=== PATIENT | female | born 1995 | race Caucasian/White ===

== ENCOUNTER → 2020-11-13 | Outpatient (CLI) | payer MEDICAID ==
[2020-11-13 11:57] LABS: Basophils % (A) 0 %; Eosinophils # (A) 0.1 k/uL (0-0.7); Eosinophils % (A) 0 %; HCT 37.5 % (34.0-46.0); HGB 12.3 gm/dL (11.4-16.0); Lymphocytes # (A) 1.7 k/uL (1.0-4.8); Lymphocytes % (A) 15 %; MCH 27.7 pg (25.0-35.0); MCHC 32.7 g/dL (31.0-37.0); MCV 84.9 fL (80.0-100.0); Mean Platelet Volume 8.4; Monocytes # (A) 0.3 k/uL (0-1.0); Monocytes % (A) 2 %; Neutrophils # (A) 9.3 k/uL (1.3-7.7); Neutrophils % (A) 81 %; Platelet Count 171 k/uL (150-450); RBC 4.42 m/uL (3.80-5.40); RDW 14.3 % (11.5-15.5); WBC 11.5 k/uL (3.8-10.6)
[2020-11-13 21:17] LABS: Hepatitis B Surface Antigen Non-Reactive (Non-Reactive)
[2020-11-13 23:41] LABS: HIV 2 AB Non-Reactive (Non-Reactive); HIV AB P24 Non-Reactive (Non-Reactive); HIV P24 AG Non-Reactive (Non-Reactive)
== END | disposition home or self-care (01) ==
LOC: LABWHC1 10:24
PROVIDERS: ATTEND Obstetrics & Gynecology
DX: Z34.02 Encounter for supervision of normal first pregnancy, second trimester (principal)
CPT/HCPCS: 36415; 82950; 83036; 85025; 86762; 86780; 86850; 86900; 86901; 87340; 87390

== ENCOUNTER 2021-04-03 14:58 | Inpatient (IN) | payer OTHER, MEDICAID ==
[~2021-04-03 14:58] MED LIST: BUPIVACAINE (PF) 0.25% 30 ML VIAL ONE; SODIUM CHLORIDE 0.9% 100 ML BAG ONE; fentaNYL (PF) 50 MCG/ML 5 ML AMP ONE
[2021-04-03] MEDS ORDERED: miSOPROStoL 25 MCG TAB VAGINAL PRN (15:24)
--- NOTE | 2021-04-03 15:42 | P.HPOB ---
History of Present Illness H&P Date: 04/03/21 Chief Complaint: Postdates This is a 25-year-old white female 1 para 0 EDC 03/29/2021 at 40-5/7 weeks' gestation. Patient presents this afternoon for Cytotec ripening of the cervix. Fetus is been active throughout the . She denies vaginal bleeding or fluid leakage. MALKA yesterday in the office was within normal limits, reactive NST noted. Past medical history is essentially negative, morbid obesity noted. Past surgical history is negative. Current medications vitamins daily. ALLERGIES codeine to which reports a family history only. Family history significant for a stillbirth. Reproductive history is negative. Social history patient has never been a smoker, she denies alcohol or drug use. She is , her 's name is back. history is significant for blood type O+, rubella status immune. VDRL testing, gonorrhea and chlamydia cultures, Pap smear, rubella status, hepatitis B surface antigen, HIV testing all negative. One-hour Glucola 162, 3 hour GTT within normal limits. On exam patient is 5 foot 8 inches, 296 pounds, blood pressure 141/72, pulse 116 on admission. The general physical exam is within normal limits. heart rate is consistent with reactive NST. Cervix is fingertip, posterior, 60% effaced, -3 station, moderate consistency. Cytotec is to be placed in the vagina when available, 25 MCG's. Impression: 40-5/7 weeks intrauterine , unfavorable cervix, morbid mate rnal obesity, here for Cytotec induction. All signs reassuring. Plan: Cytotec 25 MCG's per vagina every 3-4 hours. Rest through the night. Stadol and/or epidural if labor should ensue. Anticipate vaginal delivery tomorrow morning. Review of Systems Constitutional: Reports as per HPI Past Medical History Past Medical History: No Reported History History of Any Multi-Drug Resistant Organisms: None Reported Past Surgical History: No Surgical Hx Reported Past Psychological History: No Psychological Hx Reported Past Alcohol Use History: None Reported Past Drug Use History: None Reported Medications and Allergies Home Medications Medication Instructions Recorded Confirmed Type Aspirin [Children's Aspirin] 81 mg PO 04/03/21 History Labetalol [Trandate] 200 mg PO BID 04/03/21 04/03/21 History Pnv No.95/Ferrous Fum/Folic AC 04/03/21 04/03/21 History [ Multivitamin Tablet] Allergies Allergy/AdvReac Type Severity Reaction Status Date / Time codeine Allergy Unknown Verified 04/03/21 15:21 Childhood Exam Intake and Output 04/03/21 04/03/21 04/03/21 06:59 14:59 22:59 Other: Weight 134.263 kg See dictation under HPI placed Assessment and Plan Assessment: 40-5/7 weeks intrauterine , unfavorable cervix, morbid maternal obesity, all signs otherwise reassuring. Plan: Cytotec intravaginally per protocol. Close maternal and surveillance. Anticipate amniorrhexis and oxytocin augmentation in the morning. All risks and benefits of this plan reviewed with the patient in detail. Time with Patient: Less than 30
[2021-04-03] MEDS: miSOPROStoL 100 MCG TAB VAGINAL PRN ×2 (15:47→19:05)
[2021-04-03] MEDS ORDERED: LACTATED RINGERS 1,000 ML IV SCH (16:00)
[2021-04-03 16:01] LABS: Anisocytosis Slight; Basophils % (A) 0 %; Eosinophils # (A) 0.1 k/uL (0-0.7); Eosinophils % (A) 0 %; HCT 34.7 % (34.0-46.0); HGB 12.3 gm/dL (11.4-16.0); Lymphocytes # (A) 1.8 k/uL (1.0-4.8); Lymphocytes % (A) 15 %; MCH 27.8 pg (25.0-35.0); MCHC 35.3 g/dL (31.0-37.0); MCV 78.6 fL (80.0-100.0); Mean Platelet Volume 8.9; Microcytosis Slight; Monocytes # (A) 0.6 k/uL (0-1.0); Monocytes % (A) 5 %; Neutrophils # (A) 9.1 k/uL (1.3-7.7); Neutrophils % (A) 78 %; Platelet Count 180 k/uL (150-450); RBC 4.42 m/uL (3.80-5.40); WBC 11.6 k/uL (3.8-10.6)
[2021-04-03] MEDS: LACTATED RINGERS 1,000 ML IV SCH (16:20)
[2021-04-03] MEDS ORDERED: BUTORPHANOL 1 MG/ML 1 ML VIAL IV PRN (19:02)
[2021-04-04] MEDS ORDERED: TERBUTALINE 1 MG/ML VIAL SQ PRN (05:13)
[2021-04-04] MEDS ORDERED: METHYLERGONOVINE 0.2 MG/ML 1 ML AMP IM PRN (05:13)
[2021-04-04] MEDS ORDERED: LIDOCAINE 0.5% (PF) 5 MG/ML (50 ML SDV) SQ PRN (05:13)
[2021-04-04] MEDS ORDERED: CARBOPROST TROMETHAMINE 250 MCG/ML 1 ML AMP IM PRN (05:13)
[2021-04-04] MEDS ORDERED: OXYTOCIN 10 UNIT/ML 1 ML VIAL IM PRN (05:13)
[2021-04-04] MEDS ORDERED: PENICILLIN G POTASSIUM 5,000,000 UNIT in DEXTROSE 5% IN WATER 100 ML IVPB ONE ×2 (05:30)
[2021-04-04] MEDS: LACTATED RINGERS 1,000 ML IV SCH ×2 (05:45→14:00)
[2021-04-04] MEDS: OXYTOCIN 30 UNITS/500 ML NS 30 UNIT in SALINE 1 500ML.BAG IV SCH ×2 (05:49→21:16)
[2021-04-04] MEDS ORDERED: LABETALOL 200 MG TAB PO STA (07:36)
[2021-04-04] MEDS: PENICILLIN G POTASSIUM 2,500,000 UNIT in DEXTROSE 5% IN WATER 100 ML IVPB SCH ×6 (10:07→19:20)
[2021-04-04] MEDS ORDERED: ACETAMINOPHEN IV (For NPO) 1,000 MG in EMPTY BAG 1 BAG IVPB STA (18:12)
[2021-04-04] MEDS ORDERED: LANOLIN CREAM 5 GM TUBE TOPICAL PRN (21:10)
[2021-04-04] MEDS ORDERED: ZOLPIDEM 5 MG TAB PO PRN (21:10)
[2021-04-04] MEDS ORDERED: HYDROCORTISONE 2.5% RECTAL CREAM 30 GM TUBE RECTAL PRN (21:10)
[2021-04-04] MEDS ORDERED: diphenhydrAMINE 25 MG CAP PO PRN (21:10)
[2021-04-04] MEDS ORDERED: diphenhydrAMINE 50 MG/ML 1 ML VIAL IVP PRN ×2 (21:10)
[2021-04-04] MEDS ORDERED: BENZOCAINE/MENTHOL SPRAY 1 GM/SPRAY AEROSOL TOPICAL PRN (21:10)
[2021-04-04] MEDS ORDERED: diphenhydrAMINE 50 MG CAP PO PRN (21:10)
[2021-04-04] MEDS ORDERED: ACETAMINOPHEN TAB 325 MG TAB PO PRN (21:10)
[2021-04-04] MEDS ORDERED: SIMETHICONE 80 MG CHEWABLE PO PRN (21:10)
--- NOTE | 2021-04-04 21:10 | P.PROBDLV ---
Vaginal Delivery Note - . Vaginal Delivery Note: This is a 25-year-old white female 1 para 0 EDC 03/29/2021 at 40-6/7 weeks' gestation. Patient presented last night for Cytotec induction for postdates and unfavorable cervix. She did receive Cytotec 25 MCG's 2. She slept through the night. This morning oxytocin augmentation was started. Group B strep cultures are positive, she did receive penicillin G 4 doses. Blood type is O+ rubella status immune. Please see my dictated history and physical for details. This morning artificial amniorrhexis revealed clear fluid. Oxytocin was started and titrated per hospital protocol. She became completely dilated at 2025 hours and began the second stage of labor at that time. With excellent maternal expulsive efforts very rapid station was noted. The perineal body was prepped and draped in usual sterile fashion. Infant's head delivered occiput anterior and he restituted accordingly. There was a nuchal cord 1 that was reduced on the perineum. The left or anterior shoulder was delivered easily from underneath the pubic symphysis at which time the oropharynx, nasopharynx, and external nares were all bulb suctioned. Patient was officially delivered of a liveborn male infant at 2042 hours. Umbilical cord was doubly clamped and ligated, he was handed to waiting nurses for evaluation where scores of 8 and 9 at one and 5 minutes respectively were given. The placenta was then delivered spontaneously, it was inspected and noted to be fully intact with trivascular cord. Please note that cord blood was sent to the lab for blood type O+. Infant weight 8 lbs. 6 oz. or 37 95 g. Careful inspection of the cervix, vagina, perineum, periurethral, and perirectal areas revealed a small first-degree midline perineal laceration. This was repaired in the usual fashion using 3-0 repeat suture. Total estimated blood loss 250 mL's. All sponge needle and instrument counts are correct. Patient is requesting circumcision for her son.
[2021-04-04] MEDS: IBUPROFEN 600 MG TAB PO SCH (23:00)
[2021-04-05] MEDS: LACTATED RINGERS 1,000 ML IV SCH (00:16)
[2021-04-05] MEDS: PENICILLIN G POTASSIUM 2,500,000 UNIT in DEXTROSE 5% IN WATER 100 ML IVPB SCH ×2 (00:17)
[2021-04-05] MEDS: IBUPROFEN 600 MG TAB PO SCH ×3 (05:42→20:32)
[2021-04-05 06:02] LABS: Anisocytosis Slight; Basophils % (A) 0 %; Eosinophils % (A) 0 %; HGB 12.4 gm/dL (11.4-16.0); Lymphocytes # (A) 2.7 k/uL (1.0-4.8); Lymphocytes % (A) 12 %; MCH 26.6 pg (25.0-35.0); MCHC 33.5 g/dL (31.0-37.0); MCV 79.5 fL (80.0-100.0); Mean Platelet Volume 8.7; Monocytes # (A) 1.1 k/uL (0-1.0); Monocytes % (A) 5 %; Neutrophils # (A) 18.9 k/uL (1.3-7.7); Neutrophils % (A) 81 %; Platelet Count 211 k/uL (150-450); RBC 4.66 m/uL (3.80-5.40); WBC 23.2 k/uL (3.8-10.6)
[2021-04-05] MEDS: SENNOSIDES-DOCUSATE SODIUM 1 EACH TAB PO SCH ×2 (07:59→20:32)
--- NOTE | 2021-04-05 08:23 | P.DS ---
Providers Date of admission: 04/03/21 14:58 Expected date of discharge: 04/05/21 Attending physician: Kristal Pleitez Primary care physician: Stated None Hospital Course: This is a 25-year-old female 1 para 0 EDC 03/29/2021 who presented at 40-6/7 weeks' gestation for Cytotec induction for unfavorable cervix and post dates . is essentially unremarkable, group B strep cultures positive, rubella status immune, blood type O+. Please see dictated history and physical for details. Patient was admitted, Cytotec was given 2 intravaginally. The following morning artificial amniorrhexis revealed clear fluid and oxytocin was started. Patient went on to receive 4 doses of penicillin G. Ultimately she delivered vaginally a liveborn male infant with scores of 8 and 9 at one and 5 minutes respectively. There was a nuchal cord 1, a small first-degree perineal laceration easily repaired, estimated blood loss 250 mL's. Infant weighed 3795 g or 8 lbs. 6 oz. Please see dictated delivery note for details. This morning the patient is doing well. She is voiding, ambulating, passing flatus without difficulty. Vital signs are stable and she is afebrile. Fundus is firm and in the midline, symmetric and 18 week size. Extremities reveal trace edema. [place] infant is doing well, circumcision has been performed. Patient is judged to be in very good condition for discharge home. She will follow-up with me in the office in 6 weeks. We've briefly reviewed options for contraception. No intercourse tampons or douching. Tjoy-fva-otcttoa Advil or Aleve, or Motrin as needed for pain. Call with any fevers shakes or chills, foul smelling or copious lochia, with any pain not alleviated by [id number] products, with any unusual headache visual changes or right upper quadrant pain, or indeed with any concerns. Assessment: Doing well post day #1 Patient Condition at Discharge: Good Plan - Discharge Summary Discharge Rx Participant: No New Discharge Prescriptions: No Action Labetalol [Trandate] 200 mg PO BID Pnv No.95/Ferrous Fum/Folic AC [ Multivitamin Tablet] Aspirin [Children's Aspirin] 81 mg PO Discharge Medication List Aspirin [Children's Aspirin] 81 mg PO 04/03/21 [History] Labetalol [Trandate] 200 mg PO BID 04/03/21 [History] Pnv No.95/Ferrous Fum/Folic AC [ Multivitamin Tablet] 04/03/21 [History] Follow up Appointment(s)/Referral(s): Kristal Pleitez MD [STAFF PHYSICIAN] - 6 Weeks Discharge Disposition: HOME SELF-CARE
[2021-04-05 16:46] VITALS: BP 138/71; PULSE 90; RESP 16; TEMP 98.3
== END 2021-04-05 21:15 | disposition home or self-care (01) | DRG 807 ==
LOC: 4FBP 14:58
PROVIDERS: ADMIT Obstetrics & Gynecology; ATTEND Obstetrics & Gynecology
PROC: 10E0XZZ Delivery of Products of Conception, External Approach (ICD-10-PCS; principal; 2021-04-04)
PROC: 0HQ9XZZ Repair Perineum Skin, External Approach (ICD-10-PCS; 2021-04-04)
DX: O48.0 Post-term pregnancy (principal); Z37.0 Single live birth; O69.81X0 Labor and delivery complicated by cord around neck, without compression, not applicable or unspecified; O70.0 First degree perineal laceration during delivery; Z3A.40 40 weeks gestation of pregnancy; Z88.5 Allergy status to narcotic agent
CPT/HCPCS: 85025; 86850; 86900; 86901